=== PATIENT | female | born 1955 ===

== ENCOUNTER 2021-04-25 09:57 | Outpatient (CLI) | payer OTHER ==
[2021-04-25] MEDS ORDERED: iohexol 300mg/ml 100ml inj. ONE (10:02)
== END 2021-04-25 23:59 | disposition home or self-care (01) ==
LOC: RAD 09:57
PROVIDERS: ATTEND Internal Medicine
DX: M72.6 Necrotizing fasciitis (principal); G93.89 Other specified disorders of brain
CPT/HCPCS: 70470; Q9967